=== PATIENT | female | born 2000 | race Caucasian/White ===

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

== ENCOUNTER 2022-10-16 19:35 | Emergency (ER) | payer OTHER ==
[2022-10-16] MEDS ORDERED: Ondansetron 4 MG/2 ML SDV ONE (19:47)
[2022-10-16] MEDS ORDERED: Sodium Chloride 0.9% 1,000 ML ONE ×2 (19:47→20:52)
[2022-10-16] MEDS ORDERED: Sodium Chloride 0.9% 1,000 ML IV ONE ×2 (19:50→20:55)
[2022-10-16] MEDS ORDERED: Sodium Chloride 0.9% 10 ML Syringe FLUSH PRN (20:04)
[2022-10-16] MEDS ORDERED: Ondansetron 4 MG/2 ML SDV IVPUSH ONE (20:05)
[2022-10-16 20:25] LABS: ANION GAP 19.2 mmol/L (5-15)
[2022-10-16] MEDS ORDERED: Iopamidol 755 Mg/ML 75 ML Bottle IVPUSH ONE (21:25)
[2022-10-16] MEDS ORDERED: Sodium Chloride 0.9% 50 ML IV SCH (21:30)
[2022-10-16] MEDS ORDERED: Ondansetron 4 MG Tab.DIS PO PRN (22:52)
[2022-10-16] MEDS ORDERED: Ciprofloxacin 500 MG Tab PO SCH (23:00)
== END 2022-10-16 23:03 | disposition home or self-care (01) ==
LOC: KA.ED 19:35
DX: K29.00 Acute gastritis without bleeding (principal); D72.828 Other elevated white blood cell count
CPT/HCPCS: 74177; 80053; 81001; 81025; 85025; 96361; 96374; 99284; A9270; J2405; J3490; J7030; Q9967